=== PATIENT | female | born 1955 | race Caucasian/White ===

== ENCOUNTER → 2021-12-10 | Outpatient (CLI) | payer BC ==
[~2021-12-10] MED LIST: CALCIUM 600 +1 EAC4 PO; CALCIUM PO; HYDROCHLOROTH12.5 MG PO; IMITREX50 MG PO; MIRALAX17 GM PO; PROAIR HFA8.5 GM INH; SYNTHROID88 MCG PO
== END ==
LOC: MAMO 08:00 → EXRD 08:10
DX: Z12.31 Encounter for screening mammogram for malignant neoplasm of breast (principal); Z13.820 Encounter for screening for osteoporosis; M81.0 Age-related osteoporosis without current pathological fracture; M85.852 Other specified disorders of bone density and structure, left thigh
CPT/HCPCS: 77063; 77067; 77080